=== PATIENT | female | born 1960 | race Caucasian/White ===

== ENCOUNTER 2016-12-31 06:08 | Day surgery (SDC) | payer MEDICARE ==
[2016-12-31] VITALS (9 sets, daily range): BP systolic 100–140; BP diastolic 63–87; PULSE 72–84; RESP 5–18; O2SAT 93–97
[~2016-12-31] VITALS: Ht 165.1 cm; Wt 88.5 kg
[2016-12-31] MEDS: Lactated Ringer's 1,000 ML IV SCH ×2 (05:32→08:26)
[~2016-12-31 06:08] MED LIST: ALBU8.5H2 INHALATION; BUSP10TA2 PO; CYAN10008 PO; CYCL10TA9 PO; CeFAZolin 2 Gm/50 mL D5W Duplex Bag IV ONE; CeFAZolin Inj 2 GM in IV Premix 1 EACH IV ONE; DOXE75CA2 PO; FERR325T40 PO; FUR20 PO; OXYC10TA8 PO; POTA-62 PO; PREG75CA PO; SERT100T9 PO; vitamin d
[2016-12-31] MEDS ORDERED: Dexamethasone 4 mg/mL Inj ONE (06:09)
[2016-12-31] MEDS ORDERED: Ondansetron 2 mg/mL 2 mL Inj ONE (06:09)
[2016-12-31] MEDS ORDERED: Propofol 10,000 mCg/mL 20 mL Inj ONE (06:09)
[2016-12-31] MEDS ORDERED: HYDROmorphone 1 mg/mL Inj ONE (06:09)
[2016-12-31] MEDS ORDERED: Succinylcholine Chloride 20 mg/mL 5 mL Inj ONE (06:09)
[2016-12-31] MEDS ORDERED: Glycopyrrolate 0.2 MG/ML 1mL Inj ONE (06:09)
[2016-12-31] MEDS ORDERED: Neostigmine 1 mg/mL 10 mL Inj ONE (06:09)
[2016-12-31] MEDS ORDERED: fentaNYL-PF 50 mCg/mL 2 mL Inj ONE (06:09)
[2016-12-31] MEDS ORDERED: Bupivacaine-MPF 0.5% 30 mL Inj INFILTRATE ONE (08:25)
[2016-12-31] MEDS ORDERED: Lactated Ringer's 500 ML IV PRN (08:34)
[2016-12-31] MEDS ORDERED: Lactated Ringer's 1,000 ML IV SCH (08:34)
--- NOTE | 2016-12-31 08:34 | PCM.HPANE ---
Patient Data Surgeon Admitting Provider: Attending Provider:Mara Ricardo MD Primary Care Physician:Other,Physician Other Provider:Obdulio Gonzalez Anesthesia Reason for Visit Recurrent Incisional Hernia Ht/WT & BMI Height (Feet): 5 Height (Inches): 5.00 Weight (Kilograms): 88.5 Body Mass Index 32.00 Allergies Coded Allergies: acetaminophen (Verified Allergy, Unknown, gi upset, 12/26/16) indomethacin sodium (Verified Allergy, Unknown, dizziness, 12/26/16) theophylline (Verified Allergy, Unknown, anaphylaxis, 12/26/16) Past Anesthesia History Anesthesia History: Denies:: Abnormal Airway, Anesthesia Reactions, Difficult Intubation, Fam Anesthesia Reaction, Fam Malignant Hypertherm, Malignant Hyperthermia Diabetes History Hx Diabetes?: No MRSA MRSA: Yes (2014) Medications Hypertension Medication: No Home Meds Incl Beta Sherlyn: No Reported Medications Albuterol HFA (Proair HFA)8.5 Gm Hfa.aer.ad2 Puffs INHALATION Q4H #1 INHALER 12/26/16 [vitamin d] No Conflict Check50,000 Weekly 12/10/16 Potassium Chloride ER 20 Meq Tablet.er20 Meq PO DAILY Ref 0 TAKE WITH FOOD 12/10/16 Pregabalin (Lyrica)75 Mg Hpoxire62 Mg PO DAILY 30 Days Ref 0 12/10/16 Ferrous Sulfate (Iron)325 Mg Ygruyw731 Mg PO DAILY 12/10/16 Buspirone 10 Mg Fpclnt28 Mg PO DAILY Ref 0 12/10/16 Cyanocobalamin (Vitamin B-12) (Vitamin B-12)1,000 Mcg Tablet1,000 Mcg PO DAILY 01/21/15 Sertraline HCl (Sertraline)100 Mg [id number] Mg PO DAILY 30 Days Ref 0 01/21/15 oxyCODONE 10 Mg Oixisa68 Mg PO q4-6 hr PRN For Pain Ref 0 01/21/15 Furosemide 20 Mg Tab20 Mg PO DAILY 30 Days Ref 0 01/21/15 Doxepin 75 Mg Ughpfef58 Mg PO HS 01/21/15 Cyclobenzaprine 10 Mg Tablet5-10 Mg PO TID PRN Spasm Ref 0 01/21/15 Discontinued Reported Medications Alprazolam 1 Mg Tablet1-2 Mg PO HS PRN For Anxiety Ref 0 01/21/15 Alprazolam 1 Mg Tablet1 Mg PO DAILY PRN For Anxiety Ref 0 01/21/15 History History of ENT Problems?: No HEENT History: Positive for:: Hearing Problem Denies:: Abnormal Airway Cataracts Difficult Intubation Dysphagia Glaucoma Sinus Problem TMJ Denture Type: Full- Upper Full- Lower Teeth Condition: No Teeth Hx of Heart Problems?: No Cardiovascular History: Positive for:: Edema (swelling legs- r/t varicose veins- stasis ulcers) Peripheral Vascular (varicose veins - wears stockings ) Denies:: AICD Abdominal Aortic Aneurism Atrial Fibrillation Congestive Heart Failure Coronary Artery Disease Heart Murmur Hypertension Irregular Heartbeat Pacemaker Hx of Respiratory Problem?: Yes Respiratory History: Positive for:: Asthma COPD Chest Surgery Dyspnea Pneumonia (2015) Use of Inhalers / NEBS (albuterol) Denies:: Emphysema Oxygen Administration Tuberculosis Use of C-PAP Machine Other History/Comment Breathing at baseline. Recent pulm infex. Finished abx one week ago Hx Neurologic Problems?: No Neurological History: Denies:: Alzheimer's Disease CVA Dementia Dizziness Headaches Multiple Sclerosis Parkinson's Disease Seizures TIA Other Neurological Pertinent: neuralgia Hx of GI Problems?: Yes Other GI Pertinent History: incisional hernia current admission problem, hx of gastric bypass, 2 prior hernias Hx of Problems?: No Genitourinary History: Denies:: Kidney Stones Urinary Tract Infection Female Hx: Positive for:: Problems with Breasts? (hx of benign lumpectomy ) Denies:: Currently Endometriosis Skin History: Positive for:: Pressure Ulcers (venous stasis ulcers) Denies:: History Skin Disorders? 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 Denies:: Blood Transfuse Reaction Blood Transfusions Hx Diabetes: No Hx Alcohol Use: NoHx Substance Use: No Smoking Status: Current Every Day Smoker Have You Smoked inLast 12 mo: Yes (1/2 pack daily) Stop/Bang S-Snoring: Do You Snore Loudly: No T-Tired: feel tired, fatigued: No O-Obsered: Observed not breath: No P-Blood Pressure: treated: No B- Body Mass Index > 35 kg/m2: No A- Age over 50: Yes N- Neck Large Circumference: No G- Gender Male: No FRANCESCA Total Score: 1 Risk Assessment Category Category 1A: Patient has history of documented sleep apnea, and HAS NOT received any narcotic, sedative or anesthesia administration during this stay. Category 1B: Patient has history of documented sleep apnea, and HAS received any narcotic , sedative or anesthesia administration during this stay Category 2: Patient has SUSPECTED Obstructive Sleep Apnea, and HAS received any narcotic , sedative or anesthesia administration during this stay. Category 3: Patient has SUSPECTED Obstructive Sleep Apnea and HAS NOT received narcotic, sedative or anesthesia administration during this stay. Category 4: Outpatient in Procedural Areas with known sleep apnea or who screen positive for High Risk via the STOP/BANG questionnaire. Exam Exam Vital Signs Vital Signs Date Time Temp Pulse Resp B/P Pulse Ox O2 Delivery O2 Flow Rate FiO2 12/31/16 06:23 36.3 82 18 127/87 93 Room Air General Appearance: Alert, Oriented X3 HEENT/AIRWAY: MP 2, Neck Movement (FROM), Other (No teeth) Lungs: Clear to Auscultation, Clear to Percussion Heart: Exam Unremarkable, Regular Rate/Rhythm Meds/Labs/Diagnostics Admission Meds Current Medications Lactated Ringer's (Lr) 1,000 ml @ 120 mls/hr Q8H20M IV Last administered on t 05:32; Start 12/31/16 at 05:00; Stop 12/31/16 at 13:19 Plan Impression Patient chart reviewed, patient interviewed and anesthestic plan with risks, benefits, and alternatives discussed, and informed consent obtained. ASA Physical Status: ASA3 Severe Disease (chronic pain meds/pain; COPD; tobacco use) Anesthetic Plan: GA Bene/Risks/Altern/Consents: Yes HP Complete Prior to Induction: Yes Other Pt understands she is at increased risk of pulm complications due to her COPD, smoking, chronic opiate use, and recent pulm infection and would like to proceed. Petr Pérez MD Dec 31, 2016 07:05
[2016-12-31] MEDS ORDERED: Labetalol 5 mg/mL 4 mL Inj IV PRN (08:35)
[2016-12-31] MEDS ORDERED: HYDROmorphone 1 mg/mL Inj IVPUSH PRN (08:35)
[2016-12-31] MEDS ORDERED: MetoCLOpramide 5 mg/mL 2 mL Inj IVPUSH PRN (08:35)
[2016-12-31] MEDS ORDERED: fentaNYL-PF 50 mCg/mL 2 mL Inj IVPUSH PRN (08:35)
[2016-12-31] MEDS ORDERED: EPHEDrine Sulfate 50 mg/mL Inj IVPUSH PRN (08:35)
[2016-12-31] MEDS ORDERED: Ondansetron 2 mg/mL 2 mL Inj IVPUSH PRN (08:35)
[2016-12-31] MEDS ORDERED: Atropine 0.4 mg/mL Inj IVPUSH PRN (08:35)
[2016-12-31] MEDS ORDERED: Phenylephrine 10,000 mCg/mL Inj IVPUSH PRN (08:35)
[2016-12-31] MEDS ORDERED: Lactated Ringer's 1,000 ML IV ONE (11:00)
[2016-12-31] MEDS ORDERED: OXYC-474 PO (11:50)
[2016-12-31] MEDS ORDERED: POLY17PO6 PO (11:50)
--- NOTE | 2016-12-31 12:05 | PCM.SURGPO ---
Immediate Operative Note Date of Surgery: Dec 31, 2016 Pre Operative Diagnosis Recurrent Incisional Hernia Post Operative Diagnosis Recurrent Incarcerated incisional hernia with Omentum Procedure Laparoscopic extensive lysis of adhesions Laparoscopic repair of recurrent incarcerated incisional hernia Surgeon and Counter Intelligence Surgeon: Mara Ricardo MD Assistants: Saadia Rodríguez & Herbie Glaser PAC Findings 5X5cm Fenestrated defect superior to old mesh. Extensive adhesions to old mesh Complications There were no periprocedural complications identified. Surgical Specimen Removed: No Specimen sent to Pathology: No Anesthetic Administered: GA Grafts, Implants: Implants-See Implant Record Output, Estimated Blood Loss: 5 Blood Admin during surgery: No Attending Statement Powerhouse Electrician Apprentice listed was medically necessary for the successful completion of the case Mara Ricardo MD Dec 31, 2016 12:05
--- NOTE | 2016-12-31 12:15 | PCM.ANEP1 ---
Post Anesthesia PACU Phase 1 Assessment Vital Signs Vital Signs Date Time Temp Pulse Resp B/P Pulse Ox O2 Delivery O2 Flow Rate FiO2 12/31/16 12:00 79 17 106/71 93 Nasal Cannula 3 12/31/16 11:55 84 6 119/85 96 Simple Mask 8 12/31/16 11:50 82 5 123/81 97 Simple Mask 8 12/31/16 11:45 36.8 81 8 140/86 97 Simple Mask 8 12/31/16 06:23 36.3 82 18 127/87 93 Room Air Anesthetic Administered: GA Level of Alertness: Awake, talking ROSARIO's with Equal Strength: Yes Pain: No Nausea or Vomiting: No CV Function & Hydration Stable: Yes Airway Device: Lungs: Clear to Auscultation, Clear to Percussion PACU Phase 2 Assessment Complications: No Follow up Care: No Patient Instructions Provided: N/A Comments See anesth record for PACU VS. PACU VSS Petr Pérez MD Dec 31, 2016 12:15
--- NOTE | 2017-01-01 00:09 | OP ---
[address] [address] OPERATIVE REPORT PATIENT: MAZIN LEON : 1960 MR#: [id number] ADMIT: 12/31/2016 JOB ID: [id number] DATE OF SURGERY: 12/31/2016 SURGEON: Mara Ricardo MD ASSISTANTS: Saadia Gunn PA-C and Herbie Glaser PA-C PREOPERATIVE DIAGNOSIS(ES): Recurrent incisional hernia. POSTOPERATIVE DIAGNOSIS(ES): Recurrent incarcerated incisional hernia with extensive adhesions. PROCEDURE PERFORMED: Laparoscopic lysis of extensive adhesiolysis and repair of recurrent incisional hernia with mesh. COMPLICATIONS: None. CONDITION OF THE PATIENT: Stable. INDICATIONS: The patient is a 56-year-old lady I met in May 2015 with chronic abdominal pain. She has had two previous hernia repairs, initially which felt like her pain and weakness she had superior to the previous hernia, previous mesh was not correlating, but after that she had an abdominal ultrasound and she was complaining of abdominal pain over the middle and also right where the hernia was. After discussing the risks, benefits, and alternatives, and discussing the postoperative pain management with her pain specialist, Dr. Mayorga , she was brought to the operating room today for laparoscopic repair of recurrent incisional hernia. PROCEDURE DETAILS: She was placed in a supine position. Underwent smooth induction of general anesthesia. The abdomen was prepped and draped in the usual sterile fashion. After a G-tube and a Carey catheter was placed, surgical time-out was undertaken using safety checklist, and all were in agreement. I began by making a horizontal incision for a 5 mm port in the left upper quadrant and dissected down to the fascia, and after grabbing the fascia with Kevin and incising it with electrocautery, I used a 5 mm Optiview port to enter the abdomen. After obtaining pneumoperitoneum, I noticed extensive adhesions but was able to place two additional 5 mm ports laterally and proceeded to take down the adhesions sharply bringing the omentum down. In a few places, the adhesions were densely adherent to the old mesh and had to cut through some mesh to bring it down. At the end of this I was happy with my hemostasis and there was no concern for any injury to the bowel. At that time, I measured the defect about old mesh to be overall 5 cm x 5 cm fenestrated defect close to the falciform ligament. So, I then took down the falciform ligament superiorly to facilitate placement of the mesh. After measurement, I chose 11.4 cm circular Ventralight mesh with Echo Positioning system and upsized one of the 5 mm ports that I first put in to a 12 mm and put the mesh inside the body. Then, we inflated the positioning balloon and tacked the mesh in place with Optiflex absorbable Tacker. I then used transfascial 0-PDS sutures in six positions around the mesh for additional security going through the skin and then tying them down. After that, I closed the 12 mm port site with a PDS suture placed local near all transfascial sutures and then evacuated the pneumoperitoneum and closed the skin with 4-0 Monocryl and Dermabond. The patient was recovered from anesthesia and was taken to the recovery room in stable condition. ADDENDUM for MODIFIER 22 Extensive intra-abdominal adhesions added to the difficulty of the operation and more than doubled operative time, prompting us to request higher reimbursement. KIERAN
[2017-01-01] MEDS ORDERED: Polyethylene Glycol (PEG) 17 Gm Powder PO SCH (08:30)
== END 2016-12-31 23:59 | disposition home or self-care (01) ==
LOC: SAS 06:08
PROVIDERS: ATTEND Student in an Organized Health Care Education/Training Program
PROC: 0WUF4JZ Supplement Abdominal Wall with Synthetic Substitute, Percutaneous Endoscopic Approach (ICD-10-PCS; principal; 2016-12-31 07:30)
DX: K43.0 Incisional hernia with obstruction, without gangrene (principal); K66.0 Peritoneal adhesions (postprocedural) (postinfection); J44.9 Chronic obstructive pulmonary disease, unspecified; G89.4 Chronic pain syndrome; E78.5 Hyperlipidemia, unspecified; F90.9 Attention-deficit hyperactivity disorder, unspecified type; E66.9 Obesity, unspecified; Z98.84 Bariatric surgery status; Z90.710 Acquired absence of both cervix and uterus; F17.210 Nicotine dependence, cigarettes, uncomplicated; Z68.32 Body mass index [BMI] 32.0-32.9, adult
CPT/HCPCS: 49655; C1781; J0330; J0690; J1100; J1170; J2405; J2710; J3010; J7120